=== PATIENT | female | born 1955 | race Caucasian/White ===

== ENCOUNTER 2022-08-09 12:14 | Outpatient (CLI) | payer MEDICARE | END 2022-08-09 12:15 | disposition home or self-care (01) | LOC: SCSMRI 12:14 | PROVIDERS: ATTEND Anesthesiology Pain Medicine | DX: M47.26 Other spondylosis with radiculopathy, lumbar region (principal); M47.814 Spondylosis without myelopathy or radiculopathy, thoracic region; Z98.890 Other specified postprocedural states | CPT/HCPCS: 72020; 72110; 72148 ==